=== PATIENT | male | born 1965 | race Caucasian/White ===

== ENCOUNTER 2016-11-10 10:24 | Emergency (ER) | payer OTHER ==
[2016-11-10 10:32] VITALS: BP 112/77
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
== END 2016-11-10 10:55 | disposition home or self-care (01) ==
LOC: UCEAST 10:24
DX: L25.9 Unspecified contact dermatitis, unspecified cause (principal); G89.21 Chronic pain due to trauma; M25.552 Pain in left hip; M25.512 Pain in left shoulder; F17.220 Nicotine dependence, chewing tobacco, uncomplicated
CPT/HCPCS: 99212; G0463

== ENCOUNTER 2016-11-17 11:23 | Emergency (ER) | payer OTHER ==
[2016-11-17 11:35] VITALS: BP 120/84
--- NOTE | 2016-11-17 11:59 | UC ---
Skin Complaint HPI - HPI Summary HPI Summary: SKIN COMPLAINT 11/10/16. SEEN HERE DIAGNOSED WITH CONTACT DERMATITIS, GIVEN PREDNISONE TAPERED DOSES, CONDITION IMPROVED, BUT NOW DOSAGES ARE GETTING SMALLER, CONDITION IS RETURNING. HAD SIMILAR CONDITION AND RESPONSE SEVERAL YEARS AGO, NEEDED EXTENDED STEROID TREATMENT. - History of Current Complaint Chief Complaint: UCAllergicReaction Time Seen by Provider: 11/17/16 11:35 Stated Complaint: RASH Hx Obtained From: Patient Onset/Duration: Gradual Onset, Lasting Weeks, Still Present Skin Exposure Onset/Duration: Weeks Ago Onset Severity: Moderate Current Severity: Mild Location: Diffuse Character: Pruritus, Redness Aggravating: Touch Alleviating: Nothing Associated Signs & Symptoms: Positive: Rash. Negative: Fever, Chills, Hoarseness, Throat Tightening, Abdominal Pain, Tenderness, Red Streaks Related History: Possible Reaction to: Food, Possible Reaction to: Environmental Exposure - Allergy/Home Medications Allergies/Adverse Reactions: Allergies Allergy/AdvReac Type Severity Reaction Status Date / Time No Known Allergies Allergy Verified 11/17/16 11:28 Review of Systems Constitutional: Negative Skin: Rash Eyes: Negative ENT: Negative Respiratory: Negative Cardiovascular: Negative Gastrointestinal: Negative Genitourinary: Negative Motor: Negative Neurovascular: Negative Musculoskeletal: Negative Neurological: Negative Psychological: Negative Is Patient Immunocompromised?: Yes - ON PREDNISONE All Other Systems Reviewed And Are Negative: Yes PMH/Surg Hx/FS Hx/Imm Hx Previously Healthy: Yes Other History Of: Negative For: Anticoagulant Therapy - Surgical History Surgical History: Yes Surgery Procedure, Year, and Place: left hip reconstruction 2006. left shoulder reconstruction. left hip 2008 - Family History Known Family History: Positive: Other - Skin: eczema - Social History Occupation: Employed Full-time Lives: With Family Alcohol Use: None Substance Use Type: None Smoking Status (MU): Never Smoked Tobacco Type: Smokeless Tobacco Amount Used/How Often: 1 CAN EVERY 2 WEEKS Physical Exam Triage Information Reviewed: Yes Appearance: Well-Appearing, No Pain Distress, Well-Nourished Vital Signs: Initial Vital Signs Temp 98.6 F 11/17/16 11:30 Pulse 88 11/17/16 11:30 Resp 16 11/17/16 11:30 BP 120/84 11/17/16 11:30 Pulse Ox 100 11/17/16 11:30 Vital Signs Reviewed: Yes Eye Exam: Normal ENT Exam: Normal ENT: Positive: Normal ENT inspection, TMs normal Dental Exam: Normal Neck exam: Normal Neck: Positive: Supple, Nontender, No Lymphadenopathy Respiratory Exam: Normal Respiratory: Positive: Chest non-tender, Lungs clear, Normal breath sounds, No respiratory distress, No accessory muscle use Cardiovascular Exam: Normal Cardiovascular: Positive: RRR, No Murmur, Pulses Normal Abdominal Exam: Normal Musculoskeletal Exam: Normal Musculoskeletal: Positive: Strength Intact, ROM Intact Neurological Exam: Normal Psychological Exam: Normal Skin Exam: Normal Course/Dx - Differential Diagnoses - Skin Complaint Differential Diagnoses: Allergic Reaction, Contact Dermatitis, Drug Rash, Eczema , MRSA, Poison [place], Poison [place], Scabies, Systemic Illness, Tinea, Urticaria - Diagnoses Provider Diagnoses: CONTACT DERMATITIS Discharge - Discharge Plan Condition: Stable Disposition: HOME Prescriptions: hydrOXYzine HCL TAB* [Atarax 25 MG TAB*] 25 mg PO TID PRN #18 tab PRN Reason: Itching predniSONE TAB* [Deltasone TAB*] 10 mg PO DAILY #30 tab Patient Education Materials: Contact Dermatitis (ED) Referrals: Augie Cook MD [Primary Care Provider] -
== END 2016-11-17 11:55 | disposition home or self-care (01) ==
LOC: UCEAST 11:23
DX: L25.9 Unspecified contact dermatitis, unspecified cause (principal); F17.220 Nicotine dependence, chewing tobacco, uncomplicated
CPT/HCPCS: 99212; G0463